=== PATIENT | male | born 1960 | race Caucasian/White ===

== ENCOUNTER → 2018-04-21 | Outpatient (CLI) | payer OTHER ==
--- NOTE | 2018-04-21 15:51 | XR ---
Limited left knee with bilateral standing knees HISTORY: Knee pain 3 views of the left knee, one view of the right knee submitted No comparisons Joint space loss is present especially in the medial compartment of the knees left greater than right , there is associated marginal spurring. Alignment and bone mineralization are maintained. No definit e joint effusion. Spurring is present greatest at the medial compartment but also at the patellofemor al joint. Difficult to exclude a loose body at the level of the intercondylar notch. IMPRESSION: Osteoarthritis.
== END | disposition home or self-care (01) ==
LOC: RADXRMAIN 12:05
PROVIDERS: ATTEND Physician Assistant
DX: M17.0 Bilateral primary osteoarthritis of knee (principal)
CPT/HCPCS: 73565

== ENCOUNTER → 2020-11-17 | Outpatient (CLI) | payer OTHER | END | disposition home or self-care (01) | LOC: LABWHC1 10:11 | PROVIDERS: ATTEND Emergency Medicine | DX: Z20.828 Contact with and (suspected) exposure to other viral communicable diseases (principal) | CPT/HCPCS: U0003; C9803 ==

== ENCOUNTER 2025-02-09 11:10 | Day surgery (SDC) | payer OTHER ==
[2025-02-09] MEDS: IV FLUID CONTINUATION 1,000 ML IV ONE (11:32)
[2025-02-09 11:40] VITALS: TEMP 97.9
[2025-02-09] MEDS ORDERED: PROPOFOL 10 MG/ML 20 ML VIAL IV ONE (13:08)
--- NOTE | 2025-02-09 13:26 | P.PCN ---
Date of Procedure: 02/09/25 Procedure(s) Performed: BRIEF HISTORY: Patient is a 64-year-old pleasant male scheduled for an elective colonoscopy as a part of a part of screening for colorectal neoplasia. PROCEDURE PERFORMED: Colonoscopy with snare polypectomy. PREOPERATIVE DIAGNOSIS: Screening for colon cancer. IV sedation per Anesthesia. PROCEDURE: After informed consent was obtained, the patient, was brought into the endoscopy unit. IV sedation was administered by Anesthesia under continuous monitoring. Digital rectal examination was normal. Initially the Olympus CF-160 flexible video colonoscope was then inserted in the rectum, gradually advanced into the cecum without any difficulty. Careful examination was performed as the scope was gradually being withdrawn. Ileocecal valve and the appendiceal orifice were visualized and appeared normal. Prep was excellent. Mucosa of the cecum, appeared normal. The ascending colon there was a 5 mm polyp removed by cold snare polypectomy. In the transverse colon there was another 5 mm polyp removed by cold snare polypectomy. The descending colon, normal. The sigmoid colon there was a 2 cm pedunculated polyp removed by snare polypectomy which was located at 30 cm from anal verge. Rest of the sigmoid colon, and rectum appeared normal. Retroflexion was performed in the rectum and no lesions were seen. The patient tolerated the procedure well. IMPRESSION: 5 mm ascending colon polyp status post cold snare polypectomy 5 mm transverse colon polyp status post cold snare polypectomy 2 centimeter pedunculated polyp in the sigmoid colon status post polypectomy RECOMMENDATIONS: Findings of this examination were discussed with the patient as well as his family. He was advised to follow-up with the biopsy results. If the biopsy reveals adenoma he can have repeat colonoscopy in 3 years
[2025-02-09 14:09] VITALS: BP 106/57; PULSE 60; RESP 16
== END 2025-02-09 14:18 | disposition home or self-care (01) ==
LOC: ORWHC2ENDO 11:10
PROVIDERS: ATTEND Internal Medicine Gastroenterology
DX: Z12.11 Encounter for screening for malignant neoplasm of colon (principal); D12.2 Benign neoplasm of ascending colon; D12.3 Benign neoplasm of transverse colon; D12.5 Benign neoplasm of sigmoid colon; G47.33 Obstructive sleep apnea (adult) (pediatric); Z99.89 Dependence on other enabling machines and devices
CPT/HCPCS: 88305; 45385; J2704